=== PATIENT | female | born 1985 | race Caucasian/White ===

== ENCOUNTER 2017-05-10 | Inpatient (IN) | payer OTHER ==
[~2017-05-10] VITALS: Ht 160 cm; Wt 52.2 kg
--- NOTE | ~2017-05-10 | PN ---
Unit #: [id number] #: [id number] Patient: ERIKA PANIAGUA [id number] [facility] [address] [place] [address] [id number] MR#: [id number] NAME: ERIKA PANIAGUA ROOM: P173 Age: 31 Sex: F Admission Date: 05/10/2017 : 1985 Attending Physician: Amrit Tong M.D. Admitting Physician: Amrit Tong M.D. Primary Care Physician: Primary Care Physician Francheska NAYAK PROGRESS NOTES DATE 05/11/2017 DISCUSSION The patient is in brighter spirits today and exhibits little in the way of signs or symptoms of withdrawal. She is requesting probable a.m. discharge to the [facility] Facility in which she had been residing. Dictated by... Amrit Tong M.D. CB/derrell TD: 05/11/2017 15:10 [facility]OB [facility] [id number] [facility] PRO[facility] NOT[facility] Page 1 of 1 X Amrit Tong MD PROGRESS NOTE
--- NOTE | ~2017-05-10 | HP ---
Unit #: [id number] #: [id number] Patient: MABEL PANIAGUA [id number] [place] [address] [id number] MR#: [id number] NAME: MABEL PANIAGUA ROOM: P173 Age: 31 Sex: F Admission Date: 05/10/2017 : 1985 Attending Physician: Amrit Tong M.D. Admitting Physician: Amrit Tong M.D. Primary Care Physician: Primary Care Physician No HISTORY AND PHYSICAL HISTORY OF PRESENT ILLNESS Mabel is a 31 year old admitted to [facility] because of her drug use. She shoots heroin. PAST MEDICAL HISTORY Long history of illicit substance abuse to include IV heroin. PAST SURGICAL HISTORY Nothing reported. ALLERGIES Sulfa, Lia. SOCIAL HISTORY She does not smoke. Drinks alcohol on occasion. Admits to a history of illicit substance abuse to include cocaine, pain pills and IV heroin. FAMILY HISTORY Medically noncontributory. REVIEW OF SYSTEMS CONSTITUTIONAL: No fever or chills. HEENT: Denies any sore throat, ear pain or runny nose. CARDIOVASCULAR: Denies chest pain, irregular heart rhythm or palpitations. CHEST: Denies shortness of breath or cough. No hemoptysis. GASTROINTESTINAL: Denies nausea, vomiting, diarrhea or chronic constipation. ENDOCRINE: Denies history of increased thirst or urination. No recent significant weight loss or gain. GENITOURINARY: Denies dysuria, frequency, or hematuria. SKIN: Denies any rashes. HEMATOLOGIC: Denies history of increased bleeding or bruising. MUSCULOSKELETAL: Denies any hot, swollen joints. No generalized muscle pain. NEUROLOGIC: Denies problems with vision or speech. No frequent, severe headaches. No numbness, tingling or weakness in any extremities. Denies loss of bladder or bowel control. CURRENT MEDICATIONS 1. Remeron 7.5 mg q.h.s. 2. Milk of Magnesia p.r.n. 3. Maalox p.r.n. 4. Tylenol p.r.n. Unit #: [id number] #: [id number] Patient: MABEL PANIAGUA PHYSICAL EXAMINATION GENERAL: Alert, well-nourished, in no apparent distress. VITAL SIGNS: Blood pressure 100/52, heart rate 80, respirations 16, temperature 98.6. WEIGHT: 115. HEIGHT: 5 feet 3 inches. SKIN: Warm and dry without rash or lesion. HEENT: Normocephalic. TMs not viewed. Oral and nasal passages clear. Conjunctivae clear. PERRLA. EOMs intact. NECK: Supple without lymphadenopathy or thyromegaly. HEART: Regular rate and rhythm without murmur. LUNGS: Clear. ABDOMEN: Soft, nontender. : Not done. EXTREMITIES: No evidence of cyanosis, clubbing or edema. Moves all without focal deficit. NEUROLOGICAL: Grossly within normal limits. Cranial Nerves: II: Visual enamorado are intact. III, IV AND : Extraocular movements are intact. Pupils are equal, round and reactive to light. V: Facial sensation is grossly normal. VII: Facial movements and expression are normal. VIII: Auditory acuity grossly intact. IX, X: Uvula is midline. Phonation is normal. XI: Patient shrugs shoulders and turns head normally. XII: Tongue protrudes in the midline. Sensory and Motor Function: Sensory and motor sensation is grossly normal. Motor: moves all extremities well. Coordination: Gait is normal. Deep Tendon Reflexes: Intact. IMPRESSION Psychiatric admission. RECOMMENDATIONS PSYCHIATRIC: Per psychiatrist. MEDICAL: See no contraindication to participate in facility's activities. MEDICAL PROGNOSIS Good. MEDICAL CONDITION Stable. Dictated by... Hailey Garcia P.A.-C. for Valdemar Bertrand/derrell TD: 05/10/2017 22:38 JOB #: [id number] Unit #: [id number] #: [id number] Patient: MABEL PANIAGUA HISTORY AND PHYSICAL Page 1 of 1 X Hailey Garcia HISTORY AND PHYSICAL
--- NOTE | ~2017-05-10 | DS ---
Unit #: [id number] #: [id number] Patient: ERIKA PANIAGUA [id number] [facility] [address] [place] [address] [id number] MR#: [id number] NAME: ERIKA PANIAGUA ROOM: P173 Age: 31 Sex: F Admission Date: 05/10/2017 : 1985 Discharge Date: 05/12/2017 Attending Physician: Amrit Tong M.D. Primary Care Physician: Primary Care Physician No DISCHARGE SUMMARY REASON FOR ADMISSION The patient is a 31-year-old white female, admitted after a brief relapse of opioid use. HOSPITAL COURSE The patient was admitted to the [facility] unit and placed on a routine detoxification protocol for opioids. Her stay in the hospital was a brief one and because she had only had a brief relapse her symptoms of withdrawal were minimal. By 05/12 the patient requested discharge saying that she would return to her previous "sober living facility" and discharge was ordered. DISCHARGE DIAGNOSES [place] I Opioid use disorder. Dysthymic disorder. [place] II [place] III [place] IV [place] V DISPOSITION ON DISCHARGE The patient is discharged on the following medications: Remeron 7.5 mg at bedtime for depression PROGNOSIS The patient's prognosis is considered fair. DIET AND ACTIVITY No dietary or physical restrictions were placed on the patient at the time of discharge. Follow up will take place through the auspices of community mental health resources. Dictated by... Amrit Tong M.D. CB/sav Unit #: [id number] #: [id number] Patient: ERIKA PANIAGUA TD: 05/15/2017 09:03 JOB #: [id number] DISCHARGE SUMMARY Page 1 of 1 X Amrit Tong MD X DISCHARGE SUMMARY
--- NOTE | ~2017-05-10 | PA ---
Unit #: [id number] #: [id number] Patient: ERIKA PANIAGUA [id number] [place] [address] [id number] MR#: [id number] NAME: ERIKA PANIAGUA ROOM: P173 Age: 31 Sex: F Admission Date: 05/10/2017 : 1985 Date of Assessment: 05/10/2017 Attending Physician: Amrit Tong M.D. Admitting Physician: Amrit Tong M.D. Primary Care Physician: Primary Care Physician No PSYCHIATRIC ASSESSMENT IDENTIFYING INFORMATION The patient is a 31-year-old white female admitted following an intentional overdose of heroin. CHIEF COMPLAINT "I overdosed." INFORMANT Patient, reliability good. HISTORY OF PRESENT ILLNESS The patient is a 31-year-old white female with a history of opioid dependence. She had recently moved to the [facility] from her home in ([place]) [place], [place], to enter a "sober living facility" after she was denied an opportunity to speak with her child by telephone. Yesterday, she had attempted suicide. The patient reports previous treatment with various psychiatric agents including citalopram, Zoloft, and Effexor, but reports that none were effective for her. She does, however, reports that her trials of these medications are less than optimal. The patient reports that she does have a history of both addiction to illicitly obtained pain medication as well as IV heroin. She denies abuse of other psychoactive substances. She denies recent changes in sleep or appetite. She does continue to endorse positive depression but denies any current suicidal ideation. PAST PSYCHIATRIC HISTORY As above. PAST MEDICAL HISTORY Noncontributory. MEDICATIONS None. ALLERGIES None. FAMILY HISTORY Noncontributory. 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 She is and the mother of a 6-year-old son. She reports substance use as noted previously and is a smoker. MENTAL STATUS EXAMINATION Examination at this time reveals the patient to be a well-developed well-nourished white female appearing her stated age. She is in no apparent physical distress at the time of examination. She is awake, alert, and oriented in all spheres. Her mood is dysphoric, her affect constricted. Speech is generally well-coherent. There are no gross deficits in memory or cognition noted. Intelligence is judged to be in the average range based on fund of knowledge. The patient is cooperative throughout the interview. She is currently denying suicidal or homicidal ideation or psychotic features. Her judgment and insight appear to be intact. ASSETS AND LIABILITIES The patient's assets: Motivation for change. Liabilities: Lack of resources. DIAGNOSTIC IMPRESSION 1. Opioid use disorder. 2. Dysthymic disorder. TREATMENT PLAN The patient remains hospitalized for safety and stabilization. I will begin a trial of mirtazapine 7.5 mg at bedtime to address the patient's depressive symptoms, and we will watch for any signs of opioid withdrawal. Suicide precautions remain in place. ESTIMATED LENGTH OF STAY 2 to 3 days. The followup will take place at the patient's current "sober living facility." Dictated by... Amrit Tong M.D. PAULETTE/carroll TD: 05/10/2017 14:56 JOB #: [id number] PSYCHIATRIC ASSESSMENT Page 1 of 1 X Amrit Tong MD X PSYCHIATRIC ASSESSMENT
[2017-05-10 09:51] LABS: BASOPHIL% 0.2 % (0-2.5); EOSINOPHIL# 0.2 X10e3 (0-0.7); EOSINOPHIL% 1.3 % (0.0-7.0); HEMATOCRIT 31.1 % (35.0-45.0); HEMOGLOBIN 10.3 gm/dL (12.0-16.0); LYMPHOCYTE% 23.5 % (17.0-45.0); MEAN CELL VOLUME 77.6 FL (83-96); MEAN CORPUSCULAR HEMOGLOBIN 25.6 PG (28-34); MEAN CORPUSCULAR HGB CONC 33.1 g/dL (30-36); MEAN PLATELET VOLUME 8.9 FL (6.5-11.5); MONOCYTE# 0.6 X10e3 (0-1.0); MONOCYTE% 4.8 % (3.0-12.0); NEUTROPHIL# 8.9 X10e3 (1.5-7.1); NEUTROPHIL% 70.2 % (40-75); PLATELET COUNT 243 X10e3 (140-420); WHITE BLOOD COUNT 12.6 X10e3 (4.0-10.5)
[2017-05-10 09:56] LABS: DIFF IND NO
[2017-05-10 10:57] LABS: ALBUMIN SERUM 3.3 g/dL (3.5-5.0); BILIRUBIN,TOTAL 0.4 mg/dL (0.2-2.0); CALCIUM SERUM 8.6 mg/dL (8.4-10.2); CREATININE SERUM 0.8 mg/dL (0.6-1.4); GLOM FILT RATE Estimated 98.3 mL/min (>60); POTASSIUM 3.3 mmol/L (3.5-5.1); PROTEIN TOTAL SERUM 6.6 g/dL (6.0-8.3)
[2017-05-11 09:45] LABS: BASOPHIL# 0.2 X10e3 (0-0.3); BASOPHIL% 2.1 % (0-2.5); EOSINOPHIL# 0.1 X10e3 (0-0.7); EOSINOPHIL% 1.4 % (0.0-7.0); HEMATOCRIT 33.3 % (35.0-45.0); HEMOGLOBIN 11.1 gm/dL (12.0-16.0); LYMPHOCYTE# 2.6 X10e3 (1.0-3.5); LYMPHOCYTE% 27.6 % (17.0-45.0); MEAN CELL VOLUME 76.9 FL (83-96); MEAN CORPUSCULAR HEMOGLOBIN 25.6 PG (28-34); MEAN CORPUSCULAR HGB CONC 33.3 g/dL (30-36); MEAN PLATELET VOLUME 8.6 FL (6.5-11.5); MONOCYTE# 0.5 X10e3 (0-1.0); MONOCYTE% 5.7 % (3.0-12.0); NEUTROPHIL% 63.2 % (40-75); PLATELET COUNT 314 X10e3 (140-420); RED BLOOD COUNT 4.34 X10e (3.90-5.30); RED CELL DISTRIBUTION WIDTH 16.8 % (11.0-15.5); WHITE BLOOD COUNT 9.5 X10e3 (4.0-10.5)
[2017-05-11 09:53] LABS: DIFF IND NO
[2017-05-12 09:59] LABS: URINE APPEARANCE CLEAR; URINE BILIRUBIN NEG (NEG); URINE BLOOD NEG (NEG); URINE COLOR DK YELLOW; URINE GLUCOSE NEG (NEG); URINE KETONE NEG (NEG); URINE LEUKOCYTE ESTERASE NEG (NEG); URINE NITRATE NEG (NEG); URINE PH 8.5 (5-8); URINE PROTEIN TRACE (NEG); URINE SPECIFIC GRAVITY 1.021 (1.003-1.035); URINE UROBILINOGEN 0.2 MG/DL (NEG)
[2017-05-12 10:09] LABS: AMPHETAMINE NEG (NEG); BARBITURATES NEG (NEG); BENZODIAZEPINES NEG (NEG); COCAINE NEG (NEG); MARIJUANA NEG (NEG); OPIATES POS (NEG); TRICYCLIC ANTIDEPRESSANTS NEG (NEG); U METHADONE NEG (NEG)
== END 2017-05-12 17:15 | DRG 897 ==
LOC: P1E 04:34
PROVIDERS: Physician Assistant Medical; Specialist
PROC: HZ2ZZZZ Detoxification Services for Substance Abuse Treatment (ICD-10-PCS; principal; 2017-05-10)
DX: F11.20 Opioid dependence, uncomplicated (principal); F34.1 Dysthymic disorder; Z88.2 Allergy status to sulfonamides
CPT/HCPCS: 80053; 80307; 81003; 84703; 85025